=== PATIENT | female | born 1995 | race Hispanic/Latino ===

== ENCOUNTER 2017-03-04 10:34 | Emergency (ER) | payer OTHER ==
[~2017-03-04] VITALS: Ht 165.1 cm; Wt 61.4 kg
[2017-03-04 10:58] VITALS: BP 130/83; PULSE 95; RESP 12; O2SAT 99
--- NOTE | 2017-03-04 11:05 | ED.REPORT ---
HPI-General Illness Date of Service March 04, 2017 ED Provider: Dr. 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 She was working on her tractor with her dad when she bent over and her vision went black, and she felt her heart beat very fast. She did not hit her head. She had a normal echocardiogram and a stress test done in October of this year. Her Dr. Napolse, insurance instructor, attributed her issues to stress. She is asymptomatic at at the ED and denies dysuria. Nursing Notes Stated Complaint: RAPID HEART BEAT/BLACKED OUT Chief Complaint: Dysrhythmia/Cardiac Nursing Notes Reviewed: Yes Allergies: Coded Allergies: No Known Allergies (Unverified , 03/04/17) General Time Seen by MD: 11:04 Chief Complaint Other (near syncope) Hx Obtained From: Patient Arrived By: Walk-in Sudden in Onset?: Yes Onset Occurred: Just prior to arrival Symptom Duration: Since onset Severity: Current: No pain currently Recent Healthcare: No recent doctor visit, No recent hospitalization Similar Sx Previous: No Past Medical History Past Medical History Notes: Normal exercise treadmill test in October 2016 Echocardiogram 10/09/16 Dr. Omaira Lainez Interpretation Summary: 1. Normal left ventricular size, wall thickness and systolic function with an estimated EF of 65 to 70% 2. Normal right ventricular size and systolic function 3. No valvular pathology appreciated. Past Medical History healthy Past Surgical History wisdom teeth Smoking History Never Smoker Social History Alcohol Use: Denies alcohol use Drug Use: Denies drug use Other Social History: Local resident Ambulatory Status Independent Review of Systems pre-syncope Full Review of Systems Cardiovascular: Reports: Chest pain ("heart racing") Female: Denies: Dysuria, Hematuria, Incontinence, Urinary frequency, Urination decreased Neurologic: Reports: Dizziness, Lightheaded, Syncope (pre-syncope), Denies: Change LOC, Headache Complete sys rev & neg: except as marked. Physical Exam PERC rule- heart rate over 100 Vital Signs Vital Signs Date Time Temp Pulse Resp B/P Pulse Ox O2 Delivery O2 Flow Rate FiO2 03/04/17 10:58 95 12 130/83 99 Room Air Initial VS: Reviewed General/Constitutional: Awake, Alert, Well appearing, Cooperative, Not toxic appearing Head / Eyes: Normocephalic, PERRL Neck: Atraumatic, Supple Respiratory / Chest: Atraumatic, Breath sounds NL, Breath sounds = bilat Heart Rate / Rhythm: Positive: Tachycardia Abdomen: Soft, Non-tender Upper Extremities Upper Extremity / MS: Full range of motion, No swelling, No deformity Lower Extremity / Pelvis / MS: Full range of motion, No swelling, No deformity Skin: Warm, Dry Neurologic: Oriented X3, Speech NL, No motor deficits Interpretation & Diagnostics Lab Results Interpretation Result Diagram: 03/04/17 1200 03/04/17 1200 Test 03/04/17 12:00 03/04/17 13:20 White Blood Count 7.8th/mm3 (3.8-10.1) Red Blood Count 4.72mil/mm3 (3.90-5.20) Hemoglobin 12.9g/dL (12.0-15.6) Hematocrit 37.3% (35.0-46.0) Mean Corpuscular Volume 79.0fL (81-100) Mean Corpuscular Hemoglobin 27.3pg (27.0-35.0) Mean Corpuscular Hemoglobin Concent 34.6% (32.0-37.0) Red Cell Distribution Width 13.0% (12.3-15.4) Platelet Count 152bil/L (150-400) Neutrophils (%) (Auto) 60.9% (40-74) Lymphocytes (%) (Auto) 27.2% (14-46) Monocytes (%) (Auto) 8.6% (4-12) Eosinophils (%) (Auto) 2.8% (0-5) Basophils (%) (Auto) 0.4% (0-3) D-Dimer 0.67mg/L FEU (<0.50) Sodium Level 139mEq/L (134-144) Potassium Level 4.2mEq/L (3.5-5.2) Chloride Level 103mEq/L (97-108) Carbon Dioxide Level 21mmol/L (18-29) Blood Urea Nitrogen 17mg/dL (6-20) Creatinine 0.66mg/dL (0.57-1.00) Estimat Glomerular Filtration Rate 164mL/min (>59) Glucose Level 92mg/dL (60-99) Calcium Level 9.5mg/dL (8.5-10.1) Total Bilirubin 0.8mg/dL (0.0-1.2) Aspartate Amino Transf (AST/SGOT) 24U/L (0-50) Alanine Aminotransferase (ALT/SGPT) 12U/L (0-32) Alkaline Phosphatase 58U/L (25-150) Troponin T 0.010ug/L (0.0-0.011) Total Protein 7.3g/dL (6.4-8.4) Albumin 4.0g/dL (3.4-5.0) Hold Messer Top Tube Received (Received) Hold Urine Received (Received) ECG Interpretation Time: 11:26 Interpreted by: ED physician Normal ECG Interpretation: Normal sinus rhythm (rate 87) Procedures Procedure Notes: ANGIOGRAPHY CT IMPRESSION: No acute process. No pulmonary embolus. Dictated by: Dimas Ray M.D. on 03/04/2017 at 13:56 Approved by: Dimas Ray M.D. on 03/04/2017 at 13:58 Re-Eval/Medical Decision Med Decision/Clinical Course Patient had intermittent tachycardia with a heart rate over 100. D-dimer was ordered for this reason. CT of the chest is unremarkable and the rest of her labs are normal and she is back to her normal functional baseline. Patient needs close outpatient follow-up with cardiology for an event monitor. Return and follow-up precautions given. Counseled Regarding: Diagnosis, Lab results, Need for follow-up, When/why to return to ED Discharge & Departure Primary Impression: Pre-syncope Additional Impression: Intermittent chest pain Disposition: Home Discharge Condition All VS Reviewed: Yes Condition: Stable Additional Instructions: Thank you for entrusting us with your care today. There are no emergent causes for your symptoms, all of your tests appear normal. Follow up with your insurance instructor for outpatient event monitor.. Return to the Emergency Department if you experience any new or worsening symptoms. I hope you feel better soon, enjoy the sunshine! Referrals: Omaira Lainez MD (PCP) Scribe Attestation Portion of this note were transcribed by Catalina Bender. I, Dr. Stone, personally performed the history, physical exam, and medical decision-making: I reviewed and confirmed the accuracy for the information in the transcribed note. Signed by: sarina Klein, 03/04/17 1500 copies to: Omaira Lainez MD, Timothy S DO March 04, 2017 11:04 Catalina Bender March 04, 2017 11:28
[2017-03-04 12:15] LABS: BASOPHILS % (AUTO) 0.4 % (0-3); EOSINOPHILS % (AUTO) 2.8 % (0-5); MONOCYTES % (AUTO) 8.6 % (4-12); Mean Corpuscular Hemoglobin 27.3 pg (27.0-35.0); NEUTROPHILS % (AUTO) 60.9 % (40-74); Platelet Count 152 bil/L (150-400)
[2017-03-04 12:47] LABS: TROPONIN T 0.01 ug/L (0.0-0.011)
--- NOTE | 2017-03-04 13:59 | DRSVH ---
PROCEDURE: CT ANGIO CHEST PULMONARY EMBOLISM ([id number]) INDICATIONS: near syncope, elevated ddimer TECHNIQUE: After the administration of intravenous contrast, 2 mm thick sections acquired from the pulmonary api karoline to the posterior costophrenic angles. 3-dimensional maximum intensity projection (MIP) coronal a nd sagittal reformats were then acquired through the thorax. For radiation dose reduction, the follo wing was used: automated exposure control, adjustment of mA and/or kV according to patient size. COMPARISON: None. FINDINGS: Image quality: Excellent. Pulmonary arteries: Pulmonary arteries are normal in size, and demonstrate no intraluminal filling d efects to suggest central pulmonary embolism. Lungs and pleura: Lungs are clear. No pleural effusions or pneumothorax. Central and peripheral ai rways are patent. Mediastinum: Heart size is normal, without pericardial effusion. No mediastinal or hilar adenopathy . Thoracic aorta is normal in caliber and enhancement. Esophagus is normal in caliber, without hiat al hernia. Bones and chest wall: No suspicious bony lesions. Ribs and thoracic spine appear intact throughout. Thyroid gland is within normal limits as visualized. No axillary or supraclavicular adenopathy. Abdomen: Visualized upper abdominal solid organs appear normal in the early arterial phase of enhanc ement. IMPRESSION: No acute process. No pulmonary embolus. Dictated by: Dimas Ray M.D. on 03/04/2017 at 13:56 Approved by: Dimas Ray M.D. on 03/04/2017 at 13:58
[2017-03-04 14:54] VITALS: BP 115/68; PULSE 84; RESP 16; O2SAT 97
== END 2017-03-04 14:55 | disposition home or self-care (01) ==
LOC: SED 10:34
DX: R55 Syncope and collapse (principal); X50.1XXA Overexertion from prolonged static or awkward postures, initial encounter; Y93.89 Activity, other specified; Y92.89 Other specified places as the place of occurrence of the external cause; Y99.8 Other external cause status; R07.89 Other chest pain
CPT/HCPCS: 36415; 71275; 80053; 81025; 84484; 85025; 85378; 93005; 99285; Q9967